=== PATIENT | female | born 1930 | race Caucasian/White ===

== ENCOUNTER → 2016-10-28 | Outpatient (CLI) | payer MEDICARE, OTHER ==
[~2016-10-28] MED LIST: IOHEXOL 300 MG/ML 100ml INJECTION ONE; NORMAL SALINE 100 ML ONE; SALINE FLUSH 10ml SYRINGE ONE
--- NOTE | 2016-10-29 09:55 | DI ---
Indication: ITS.REASON: R31.9 Hematuria, unspecified; R10.9 PROCEDURE: CT RENAL W/WO CONTRAST: Encounter: Initial Comparison: None Technique: Axial CT images were performed through the abdomen and pelvis before and after the administration of intravenous contrast. Delayed postcontrast images were also performed. Coronal and sagittal 2-dimensional reformats. Automated Exposure Control and Iterative Reconstruction dose reducing techniques were utilized. Contrast: Omnipaque 300 99 mL Findings: The lung bases are grossly clear. Noncontrast images show no evidence of renal or ureteral stone disease. The liver appears normal. Gallbladder is surgically absent. Small hiatal hernia. The spleen with accessory splenule, pancreas and adrenal glands are within normal limits. Scattered atherosclerotic arterial plaque. No abdominal or pelvic lymphadenopathy. Bladder appears grossly normal without enhancing mass or focal wall thickening. Uterus is absent. No evidence of a bowel obstruction. Bone windows show mild degenerative change in the lumbar spine. Delayed postcontrast images show symmetric excretion of contrast by both renal collecting systems. No focal filling defects. The ureters are normal in course and caliber. Bladder appears normal. Impression: Negative exam. No clear etiology for the patient's hematuria. .
== END ==
LOC: IMA 14:32
PROVIDERS: ATTEND Family Medicine
DX: R31.9 Hematuria, unspecified (principal)
CPT/HCPCS: 74178; J7050; Q9967